=== PATIENT | female | born 1990 | race Caucasian/White ===

== ENCOUNTER 2016-12-29 04:53 | Inpatient (IN) | payer SELFPAY ==
[~2016-12-29] VITALS: Ht 160 cm; Wt 87.4 kg
[~2016-12-29 04:53] MED LIST: PREN1TAB49 PO
[2016-12-29 06:02] VITALS: Ht 160 cm; Wt 87.4 kg
[2016-12-29 06:03] VITALS: BP 136/60; PULSE 110; RESP 18
[2016-12-29 06:05] LABS: ADD UMIC YES; UR ASCORBIC ACID NEGATIVE (NEGATIVE); UR BILIRUBIN (Dip) NEGATIVE (NEGATIVE); UR BLOOD (Dip) NEGATIVE (NEGATIVE); UR CLARITY SLIGHTLY CLOUDY (CLEAR); UR COLOR YELLOW (YELLOW); UR GLUCOSE (Dip) NEGATIVE (NEGATIVE); UR KETONES (Dip) NEGATIVE (NEGATIVE); UR LEUKOCYTE ESTERASE (Dip) NEGATIVE Leu/ul (NEGATIVE); UR MUCUS FEW /HPF (NONE SEEN); UR NITRITE (Dip) NEGATIVE (NEGATIVE); UR RBC 0 /HPF (0-5); UR SPECIFIC GRAVITY (Dip) 1.017 (1.003-1.030); UR SQUAMOUS EPITHELIAL CELL FEW /HPF (FEW); UR TOTAL PROTEIN (Dip) 1+ mg/dl (NEGATIVE); UR UROBILINOGEN (Dip) 2+ mg/dL (NEGATIVE)
[2016-12-29 06:10] LABS: ABNORMAL IP MESSAGE 1; BASOPHILS % 0.2 % (0.0-2.0); EOSINOPHILS # 0.1 10^3/ul (0.0-0.5); EOSINOPHILS % 0.6 % (0.0-7.0); HEMATOCRIT 28.9 % (37.0-47.0); HEMOGLOBIN 9.6 g/dl (12.0-16.0); LYMPHOCYTES # 2.9 10^3/ul (0.8-2.9); LYMPHOCYTES % 17.3 % (15.0-51.0); MEAN CORPUSCULAR HEMOGLOBIN 26.4 pg (29.0-33.0); MEAN CORPUSCULAR HGB CONC 33.2 g/dl (32.0-37.0); MEAN CORPUSCULAR VOLUME 79.4 fl (82.0-101.0); MEAN PLATELET VOLUME 10.4 fl (7.4-10.4); MONOCYTE # 1.7 10^3/ul (0.3-0.9); MONOCYTES % 9.8 % (0.0-11.0); NEUTROPHILS % 70.3 % (39.0-77.0); PLATELET COUNT 265 10^3/UL (140-415); RED BLOOD COUNT 3.64 10^6/ul (4.20-5.40); RED CELL DISTRIBUTION WIDTH 14.3 % (11.5-14.5); WHITE BLOOD COUNT 16.9 10^3/ul (4.8-10.8)
[2016-12-29 06:20] LABS: INR 0.97; PROTIME 12.9 Sec (12.2-14.2)
[2016-12-29 06:21] LABS: PARTIAL THROMBOPLASTIN TIME 30.4 Sec (25.0-35.0)
[2016-12-29 06:24] LABS: POSITIVE DIFF @See below
[2016-12-29] MEDS: LACTATED RINGER'S 1,000 ML IV SCH ×4 (06:40→18:19)
--- NOTE | 2016-12-29 06:46 | HP ---
Date/Time of Note Date/Time of Note DATE: 12/29/16 TIME: 06:41 OB - History Hx of Present Free Text/Dictation 26yo at 35+3 by today's U/S presenting without any care for contractions q30-40 min starting at 2am. Pt states she did not know she was until about 4-5 weeks ago. At that time she was in [place] and had an ultrasound, however states she was not given any information about the . Pt states fetus is moving however the movement has been slower since contractions started. Denies LOF or VB. OB Hx: G1 SAB at 6wks G2 C/S at 27wks GA with gastroschisis, per pt C/S 2/2 poor movement PMHx denies Chief Complaint: contractions : 3 Para: 1 Spontaneous : 1 Care: None Medical Complications: None Past Family/Social History * Past Medical, Surgical, Family and Obstetric Histories reviewed with patient. records not available. Pt reports Rh neg status OB Admission Exam Vital Signs Vital Signs Vital Signs Date Time Temp Pulse Resp B/P Pulse Ox O2 Delivery O2 Flow Rate FiO2 12/29/16 06:03 98.2 110 18 136/60 Room Air FHR 170s, min alma, no accels, no decels Physical Exam HEENT: WNL Heart: Other (tachycardic, normal rhythm) Lungs: Clear Abdomen: WNL (gravid, nontender) Extremities: Normal Cervical Dilatation: Fingertip Effacement: Other (80%) Station: -2 Membranes: Intact Decelerations: No Decelerations Varibility: Minimum Contractions on Admission: >10 Minutes Apart Date/Time Contractions Began: 0200 Last 72 hours Lab Results CBC & BMP 12/29/16 05:33 OB Assessment/Plan Other Assessment: IUP at 35+3wks GA gastroschisis with herniation of multiple organs, no liver herniation tachycardia BPP 2/8 (2 for ANDI only) Plan: Section Other plan: Given nonreassuring status, delivery indicated for indications. Pt d/w Perinatologist, Dr. Barnes (attempted to call on-call MFM Dr. Pemberton three times without success) and advised to consult with [employer] Operations [employer] Analyst regarding prognosis with delivery at [facility] and transfer. Per Dr. Vanderhall, may proceed for obstetric indications and baby will be stabilized here at [facility] followed by likely transfer. Thus will proceed to delivery via [facility]. The risks of C/S discussed include but are not limited to pain, infection, damage to nearby organs, structures or injury to baby, bleeding possibly requiring transfusion of blood products and abnormal placentation in future pregnancies. Pt made aware that should injury to organs or structures be noted during the procedure, they will be repaired. However, there is a possibility that injuries may be sustained at the time of the C/S and go unrecognized. Thus additional surgeries may be necessary to repair damage during the C/S. The pt had an opportunity to have her questions answered. Written consent for Repeat C/S and transfusion of blood products were signed. RN, NICU and Anesthesia teams made aware of plan. LAURA ZAVALETA MD Dec 29, 2016 06:46
[2016-12-29] MEDS ORDERED: CEFAZOLIN 2 GM/50 ML (PMX) 50 ML IVPB ONE (07:43)
[2016-12-29] MEDS ORDERED: OXYTOCIN 30 UNITS/LR 500 ML IV ONE (07:45)
[2016-12-29] MEDS ORDERED: morphine SULFATE/PF (10 MG/10 ML) INJ ONE (07:45)
[2016-12-29] MEDS ORDERED: KETOROLAC 30 MG INJ ONE (07:45)
[2016-12-29] MEDS ORDERED: METOCLOPRAMIDE 10 MG INJ ONE (07:45)
--- NOTE | 2016-12-29 07:46 | RADRPT ---
PROCEDURE: US OB. CLINICAL INDICATION: Regional liver, contraction. Unknown LMP TECHNIQUE: Multiple sonographic images of the pelvis were obtained. The images were reviewed on a PACS workstation. COMPARISON: No prior studies are available for comparison. FINDINGS: The cervix is closed with a length of . There is a single viable intrauterine gestation. Cardiac activity is present with 173 beats per min fifi. There is a cephalic presentation. Measurements were made in order to determine age. The results are as follows: BPD =8.48 cm HC =31.2 cm AC =32.1 cm FL =7.1 cm. Estimated gestational age of approximately 35 weeks, 3 days. The estimated date of delivery is 01/30/2017. The EFW = 2771 g plus or minus 415.7 g, or 6 pounds, 2 ounces . Extracorporeal, thickened echogenic bowel and bladder are demonstrated. The kidneys and stomach are not visualized. The placenta is anterior, grade 1. There is no evidence for an abruption or placenta previa. There is a normal amount of amniotic fluid with an ANDI = 14.5 cm. Biophysical profile is 2/8. movement, tone and breathing are absent. IMPRESSION: Single viable intrauterine gestation of approximately 35 weeks, 3 days. The estimated date of deliv joanne is 01/30/2017 . Cephalic presentation. Anterior placenta. Normal ANDI. Biophysical profile 2/8. Findings suggesting gastroschisis. Limited anatomic survey. Follow-up recommended. Physician Gordon Date Time Electronically viewed and signed by Physician Gordon on 12/29/2016 07:46 CS/
--- NOTE | 2016-12-29 07:47 | RADRPT ---
PROCEDURE: OB ultrasound for biophysical profile CLINICAL INDICATION: labor. Biophysical profile. . TECHNIQUE: Multiple sonographic images of the pelvis were obtained. Transabdominal view of the gr avid uterus are available for review. The images were reviewed on a PACS workstation. COMPARISON: None FINDINGS: breathing movement = 0/2 tone = 0/2 motion = 0/2 ANDI = 2/2 ANDI = 14.5 cm Single live intrauterine with cardiac activity. IMPRESSION: 1. Single viable intrauterine gestation. 2. Biophysical profile = 2/8 3. ANDI = 14.5 cm. RPTAT: HCNS Physician Gordon Date Time Electronically viewed and signed by Physician Gordon on 12/29/2016 07:47 CS/
[2016-12-29] MEDS ORDERED: LACTATED RINGER'S 1,000 ML IV SCH (08:07)
[2016-12-29] MEDS ORDERED: PHENYLephrine (100 MCG/ML) 5ML SYG ONE ×2 (08:29→08:56)
[2016-12-29] MEDS ORDERED: METHYLERGONOVINE 0.2 MG INJ IM PRN ×2 (08:30→10:30)
[2016-12-29] MEDS ORDERED: MISOPROSTOL 200 MCG TAB PR PRN ×2 (08:30→10:30)
[2016-12-29] MEDS ORDERED: CEFAZOLIN 2 GM/50 ML (PMX) 50 ML IV SCH (08:30)
[2016-12-29] MEDS ORDERED: CARBOPROST 250 MCG INJ IM PRN ×2 (08:30→10:30)
[2016-12-29] MEDS ORDERED: OXYTOCIN 30 UNITS/LR 500 ML IV SCH (08:30)
[2016-12-29] MEDS ORDERED: OXYTOCIN 30 UNITS/LR 500 ML IV PRN ×2 (08:30→10:30)
[2016-12-29] MEDS ORDERED: FENTAnyl 50 MCG/ML VIAL ONE (08:56)
[2016-12-29 09:30] LABS: BARBITURATES Negative (NEGATIVE); BENZODIAZEPINES Negative (NEGATIVE); CANNABINOIDS Negative (NEGATIVE); COCAINE Negative (NEGATIVE); OPIATES Negative (NEGATIVE)
--- NOTE | 2016-12-29 09:37 | OPR ---
Operative Report Planned Procedure Procedure date Dec 29, 2016 Procedure(s) Repeat Low Transverse Section via Pfannenstiel Incision Performed by: LAURA ZAVAELTA MD Assisting provider: LEONARD JONES MD Anesthesiologist: EL GUNN MD Pre-procedure diagnosis 1)IUP at 35+3wks GA 2)Nonreassuring Status 3)Hx of C/S x1 4) Gastroschisis Anesthesia Type: spinal Procedure Description Under satisfactory anesthesia, the patient was prepped and draped and placed in a supine position with a tilt. Pfannenstiel incision was made with a scalpel, carried through the subcutaneous tissue sharply. Bleeders brought under control with electrocautery. Fascia incised and extended bilaterally using Hunter scissors. The superior and inferior aspects of the fascia were grasped with Marcos clamps and the fascia was sharply dissected off of the underlying rectus muscles. Rectus muscles bluntly divided midline. Peritoneum exposed, entered bluntly. Exploration of abdomen revealed gravid uterus. No adhesions were noted. A bladder flap was created sharply. Transverse incision was made in the lower segment of the uterus with entry through anterior placenta. Meconium stained amniotic fluid noted. The head was elevated to the level of the hysterotomy and delivered atraumatically followed by the remainder of the body. intestines immediately covered with moist lap on the sterile field. Nasal oropharyngeal suction was performed. The cord was doubly clamped and cut after cord milking x30 seconds. The baby was handed to the team for immediate attention. The placenta was delivered manually intact. Uterine cavity was cleaned with wet sponge x3. Uterus closed in 2 layers using 0-Vicryl. The first layer was running and locking and the second was in a horizontal imbricating manner. Hemostasis was achieved. Fibrillar was placed over the incision. Sponge, needle and instrument count reported to be correct. The rectus muscles and fascia were examined and noted to be intact. Small bleeders rendered hemostatic with electrocautery. Fascia closed with 0-Vicryl. The subcutaneous tissue was irrigated and small bleeders rendered hemostatic with electrocautery. The tissue was reapproximated using 2-0 Plain gut suture. The skin was reapproximated using 3-0 Monocryl. Estimated blood loss 600mL. Urine bag contained 300mL of clear urine. IVF administered 1.4L. Post-Procedure Post-procedure diagnosis Same, delivered Findings: Live female infant with herniation of bowel, Apgars 8 and 9 at 1 and 5 min respectively, weight 2550g, position vertex. Normal appearing uterus. Intact placenta with 3VC. No intrabdominal adhesions. Specimen removed: Yes (Placenta, sent to Pathology) Complications: None Pt Condition post procedure: stable Disposition: PACU Physician Certification I, the undersigned physician, hereby certify that I have discussed the procedure described in this consent form with this patient (or the patient's legal traveling representative), including: * The risk and benefits of the procedure; * Any adverse reactions that may reasonably be expected to occur; * Any alternative efficacious methods of treatment which may be medically viable ; * The potential problems that may occur during recuperation; * Potential for blood transfusion and associated risks/benefits; and * Any research or economic interest I may have regarding this treatment. I further certify that the patient/legally responsible person was encouraged to ask question and that all questions were answered. LAURA ZAVALETA MD Dec 29, 2016 09:37
[2016-12-29] MEDS ORDERED: DIPHENHYDRAMINE 50 MG INJ IV PRN ×2 (10:00)
[2016-12-29] MEDS ORDERED: HYDROmorphONE (0.2 MG/ML) 10ML SYG IV PRN ×3 (10:00)
[2016-12-29] MEDS ORDERED: NALOXONE (0.4 MG/ML) INJ IV PRN (10:00)
[2016-12-29] MEDS ORDERED: METOCLOPRAMIDE 10 MG INJ IV PRN (10:00)
[2016-12-29] MEDS ORDERED: HYDROmorphONE 1 MG/ML SYG IV PRN ×3 (10:00)
[2016-12-29] MEDS ORDERED: MEPERIDINE 25 MG INJ IV PRN (10:00)
[2016-12-29 10:07] LABS: ALBUMIN 3.1 g/dl (3.3-4.9); ALBUMIN/GLOBULIN RATIO 0.81; BILIRUBIN,INDIRECT 0.1 mg/dl (0-1.1); BILIRUBIN,TOTAL 0.1 mg/dl (0.2-1.3); CALCIUM 8.7 mg/dl (8.4-10.2); CREATININE 0.5 mg/dl (0.44-1.00); POTASSIUM 3.8 mmol/L (3.5-5.1); TOTAL PROTEIN 6.9 g/dl (6.1-8.1)
[2016-12-29] MEDS ORDERED: LANOLIN 7 GM TUBE TOP PRN (10:30)
[2016-12-29] MEDS ORDERED: HYDROCODONE/APAP (5/325) TAB PO PRN ×2 (10:30)
[2016-12-29 11:22] LABS: CBV Base Excess -2.5 mmol/L; CBV COHb 1.5 %; CBV Oxygen Sat 67.8 mmHG; CBV Total Hemglobin 18.2 g/dl; Cord Blood Venous pO2 29.3 mmHG (15.0-45.0); Fraction OxyHgb Cord Venous 65.9 %; MODE ROOM AIR; MetHgb Cord Venous 1.3 %; Sample Type CBV
[2016-12-29 12:38] VITALS: BP 128/61; PULSE 109; RESP 20
[2016-12-29] MEDS: IBUPROFEN 800 MG TAB PO SCH ×2 (14:00→22:00)
[2016-12-29 15:30] VITALS: BP 109/72; PULSE 109; RESP 20
[2016-12-29 20:00] VITALS: BP 112/71; PULSE 117; RESP 18
[2016-12-29] MEDS: SENNA/DOCUSATE NA (8.6MG/50MG) TAB PO SCH (21:00)
[2016-12-30] VITALS (7 sets, daily range): BP systolic 101–109; BP diastolic 55–69; PULSE 103–124; RESP 18–28
[2016-12-30] MEDS: KETOROLAC 30 MG INJ IV PRN ×2 (01:19→07:55)
--- NOTE | 2016-12-30 01:21 | PN ---
Date/Time of Note Date/Time of Note DATE: 12/30/16 TIME: 01:19 Assessment/Plan VTE Prophylaxis VTE Prophylaxis Intervention: ambulation Lines/Catheters IV Catheter Type (from Nrsg): Peripheral IV Subjective 24 Hr Interval Summary Free Text/Dictation anesthesia note: A 26 female s/p spinal duramorph is doimg pk/ pain is controlled, no n/v, itching, headache, back pain. care per surgery Exam/Review of Systems Vital Signs Vitals Vital Signs Date Time Temp Pulse Resp B/P Pulse Ox O2 Delivery O2 Flow Rate FiO2 12/29/16 20:00 98.9 117 18 112/71 Room Air Intake and Output 12/29/16 12/29/16 12/30/16 15:00 23:00 07:00 Intake Total 125 ml Output Total 950 ml Balance -825 ml Results Result Diagram: 12/29/16 0533 12/29/16 0535 Results 24 hrs Laboratory Tests Test 12/29/16 05:33 12/29/16 05:35 12/29/16 08:35 12/29/16 09:25 White Blood Count 16.9 H Red Blood Count 3.64 L Hemoglobin 9.6 L Hematocrit 28.9 L Mean Corpuscular Volume 79.4 L Mean Corpuscular Hemoglobin 26.4 L Mean Corpuscular Hemoglobin Concent 33.2 Red Cell Distribution Width 14.3 Platelet Count 265 Mean Platelet Volume 10.4 Neutrophils % 70.3 Lymphocytes % 17.3 Monocytes % 9.8 Eosinophils % 0.6 Basophils % 0.2 Nucleated Red Blood Cells % 0.0 Neutrophils # (Manual) 11.9 H Lymphocytes # 2.9 Monocytes # 1.7 H Eosinophils # 0.1 Basophils # 0.0 Nucleated Red Blood Cells # 0.0 Prothrombin Time 12.9 Prothrombin Time Ratio 1.0 INR International Normalized Ratio 0.97 Activated Partial Thromboplast Time 30.4 Rapid Plasma Reagin NONREACTIVE Hepatitis B Surface Antigen NEGATIVE NEGATIVE HIV (1&2) Antibody NEGATIVE Urine Color YELLOW Urine Clarity SLIGHTLY CLOUDY A Urine pH 6.0 Urine Specific [place] 1.017 Urine Ketones NEGATIVE Urine Nitrite NEGATIVE Urine Bilirubin NEGATIVE Urine Urobilinogen 2+ H Urine Leukocyte Esterase NEGATIVE Urine Microscopic RBC 0 Urine Microscopic WBC 2 Urine Squamous Epithelial Cells FEW Urine Mucus FEW A Urine Hemoglobin NEGATIVE Urine Glucose NEGATIVE Urine Total Protein 1+ H Sodium Level 136 Potassium Level 3.8 Chloride Level 107 Carbon Dioxide Level 22 Anion Gap 11 Blood Urea Nitrogen 6 L Creatinine 0.50 Glucose Level 109 Calcium Level 8.7 Total Bilirubin 0.1 L Direct Bilirubin 0.00 Indirect Bilirubin 0.1 Aspartate Amino Transf (AST/SGOT) 25 Alanine Aminotransferase (ALT/SGPT) 35 Alkaline Phosphatase 192 H Total Protein 6.9 Albumin 3.1 L Globulin 3.80 H Albumin/Globulin Ratio 0.81 Urine Opiates Screen Negative Urine Barbiturates Negative Urine Amphetamines Screen Negative Urine Benzodiazepines Screen Negative Urine Cocaine Screen Negative Urine Cannabinoids Negative Blood Gas Specimen Source CBV Arterial Blood Date Drawn 12/29/2016 9:39:40 AM Arterial Blood Gas Puncture Site CORD Palmer Test N/A Cord Blood Carboxyhemoglobin 1.5 Cord Venous Blood pH 7.341 Cord Venous Blood PCO2 44.4 Cord Venous Blood PO2 29.3 Cord Venous Blood HCO3 23.5 Cord Venous Blood Base Excess -2.5 POC Cord Venous Blood Oxygen Sat 67.8 Cord Venous Blood Hemoglobin 18.2 Cord Venous Blood Oxyhemoglobin 65.9 Cord Venous Blood Methemoglobin 1.3 Blood Gas Temperature 37.0 Blood Gas Modality ROOM AIR FiO2 21.0 Blood Gas Notified Whom NB Blood Gas Notified Time 12/29/2016 11:22:13 AM Medications Medications Current Medications Naloxone HCl (Narcan) 0.1 mg Q2M PRN IV FOR RESP RATE 8 OR LESS; Start 12/29/16 at 10:00; Stop 12/30/16 at 09:59 Ketorolac Tromethamine (Toradol) 30 mg Q6H PRN IV PAIN; Start 12/29/16 at 10:00 ; Stop 12/30/16 at 09:59 Hydromorphone HCl (Dilaudid) 1 mg Q3H PRN IV BREAKTHROUGH PAIN; Start 12/29/16 at 10:00; Stop 12/30/16 at 09:59 Hydromorphone HCl (Dilaudid) 0.2 mg Q3H PRN IV PAIN LEVEL 1-5; Start 12/29/16 at 10:00; Stop 12/30/16 at 09:59 Hydromorphone HCl (Dilaudid) 0.4 mg Q3H PRN IV PAIN LEVEL 6-10; Start 12/29/16 at 10:00; Stop 12/30/16 at 09:59 Diphenhydramine HCl 25 mg 25 mg Q6H PRN IV ITCHING; Start 12/29/16 at 10:00; Stop 12/30/16 at 09:59 Lactated Ringer's (Lr) 1,000 ml @ 125 mls/hr Q8H IV Last administered on t 18:19; Admin Dose 125 MLS/HR; Start 12/29/16 at 10:10 Acetaminophen/ Hydrocodone Bitart ([place] (5/325)) 1 tab Q4H PRN PO PAIN LEVEL 4 -6; Start 12/29/16 at 10:30 Acetaminophen/ Hydrocodone Bitart ([place] (5/325)) 2 tab Q4H PRN PO PAIN LEVEL 7 -10; Start 12/29/16 at 10:30 Ibuprofen (Motrin) 800 mg Q8 PO ; Start 12/29/16 at 14:00 Simethicone (Mylicon) 160 mg Q8H PRN PO DISTENSION/GAS/BLOATING; Start 12/29/16 at 10:30 Senna/Docusate Sodium (Senokot-S) 1 tab BID PO ; Start 12/29/16 at 21:00 Diphtheria/ Tetanus/Acell Pertussis 0.5 ml 0.5 ml ONCE ONCE IM* ; Start 01/01/17 at 09:00; Stop 01/01/17 at 09:01 Oxytocin/Lactated Ringer's 500 ml @ 0 mls/hr ONCE PRN IV For Hemorrhage Management; Start 12/29/16 at 10:30 Methylergonovine Maleate (Methergine) 0.2 mg ONCE PRN IM VAGINAL BLEEDING; Start 12/29/16 at 10:30 Carboprost Tromethamine (Hemabate) 250 mcg ONCE PRN IM VAGINAL BLEEDING; Start 12/29/16 at 10:30 Misoprostol (Cytotec) 1,000 mcg ONCE PRN [place] VAGINAL BLEEDING; Start 12/29/16 at 10:30 EL GUNN MD Dec 30, 2016 01:21
[2016-12-30] MEDS: LACTATED RINGER'S 1,000 ML IV SCH ×3 (02:31→19:30)
[2016-12-30] MEDS: IBUPROFEN 800 MG TAB PO SCH ×3 (06:00→21:56)
[2016-12-30 07:52] LABS: BASOPHILS % 0.2 % (0.0-2.0); EOSINOPHILS % 0.2 % (0.0-7.0); HEMATOCRIT 28.4 % (37.0-47.0); HEMOGLOBIN 8.9 g/dl (12.0-16.0); LYMPHOCYTES # 2.5 10^3/ul (0.8-2.9); LYMPHOCYTES % 14.3 % (15.0-51.0); MEAN CORPUSCULAR HEMOGLOBIN 25.7 pg (29.0-33.0); MEAN CORPUSCULAR HGB CONC 31.3 g/dl (32.0-37.0); MEAN CORPUSCULAR VOLUME 82.1 fl (82.0-101.0); MEAN PLATELET VOLUME 10.6 fl (7.4-10.4); MONOCYTE # 1.4 10^3/ul (0.3-0.9); MONOCYTES % 8.3 % (0.0-11.0); PLATELET COUNT 210 10^3/UL (140-415); RED BLOOD COUNT 3.46 10^6/ul (4.20-5.40); RED CELL DISTRIBUTION WIDTH 14.5 % (11.5-14.5); WHITE BLOOD COUNT 17.2 10^3/ul (4.8-10.8)
[2016-12-30] MEDS: SENNA/DOCUSATE NA (8.6MG/50MG) TAB PO SCH ×2 (11:56→21:56)
[2016-12-30] MEDS ORDERED: LACTATED RINGER'S 500 ML IV ONE ×2 (16:00→19:30)
[2016-12-30 18:06] LABS: ABNORMAL IP MESSAGE 1; BASOPHILS % 0.2 % (0.0-2.0); EOSINOPHILS % 0.1 % (0.0-7.0); HEMOGLOBIN 8.8 g/dl (12.0-16.0); LYMPHOCYTES # 1.7 10^3/ul (0.8-2.9); LYMPHOCYTES % 9.7 % (15.0-51.0); MEAN CORPUSCULAR HEMOGLOBIN 27.5 pg (29.0-33.0); MEAN CORPUSCULAR HGB CONC 33.8 g/dl (32.0-37.0); MEAN CORPUSCULAR VOLUME 81.3 fl (82.0-101.0); MEAN PLATELET VOLUME 10.5 fl (7.4-10.4); MONOCYTE # 1.5 10^3/ul (0.3-0.9); MONOCYTES % 8.6 % (0.0-11.0); NEUTROPHILS % 79.8 % (39.0-77.0); PLATELET COUNT 243 10^3/UL (140-415); RED CELL DISTRIBUTION WIDTH 14.4 % (11.5-14.5); WHITE BLOOD COUNT 17.6 10^3/ul (4.8-10.8)
[2016-12-30 18:08] LABS: POSITIVE DIFF @See below
--- NOTE | 2016-12-30 18:27 | QN ---
Documentation Comment pod1 pt doing well no complaints vss tachy 115-120 temp wnl exam wnl a/p pod 1 cbc stable tachy iv bolus cbc tsh DANIELLE STEELE MD Dec 30, 2016 18:27
--- NOTE | 2016-12-30 19:59 | QN ---
Documentation Comment Postop day #1 status post repeat Patient reports of having shortness of breath in the last two weeks but not at this time Patient with tachycardia since this a.m. 115-120 O2 sat 98% in room air Afebrile and stable Hb 8.8 WBC 17.6 Patient received 500cc IVF bolus earlier today I came on my shift at 7 PM I ordered additional IV fluid bolus EKG and chest x-ray Spiral CT to rule out PE labs and ABX ordered Requested hospitalist consult DIAMOND BRUNER MD Dec 30, 2016 19:59
--- NOTE | 2016-12-30 21:02 | RADRPT ---
PROCEDURE: XR Chest. CLINICAL INDICATION: Shortness of breath. TECHNIQUE: PA and lateral chest x-ray. COMPARISON: None. FINDINGS: The cardiomediastinal silhouette is unremarkable. There is no congestive heart failure. There is mild bibasilar atelectasis. There is no pleural effusion. There is no pneumothorax The osseous s tructures are unremarkable. IMPRESSION: Mild bibasilar atelectasis. RPTAT: [facility]VK .Carlos Plummer MD, MD Date Time Electronically viewed and signed by .Carlos Plummer MD, on 12/30/2016 21:02 .K/
[2016-12-30 21:11] LABS: ABNORMAL IP MESSAGE 1; BASOPHILS % 0.2 % (0.0-2.0); EOSINOPHILS # 0.1 10^3/ul (0.0-0.5); EOSINOPHILS % 0.3 % (0.0-7.0); HEMATOCRIT 26.8 % (37.0-47.0); LYMPHOCYTES # 2.1 10^3/ul (0.8-2.9); LYMPHOCYTES % 11.6 % (15.0-51.0); MEAN CORPUSCULAR HEMOGLOBIN 27.1 pg (29.0-33.0); MEAN CORPUSCULAR HGB CONC 33.6 g/dl (32.0-37.0); MEAN CORPUSCULAR VOLUME 80.7 fl (82.0-101.0); MEAN PLATELET VOLUME 9.6 fl (7.4-10.4); MONOCYTE # 1.5 10^3/ul (0.3-0.9); MONOCYTES % 8.6 % (0.0-11.0); NEUTROPHILS % 77.6 % (39.0-77.0); PLATELET COUNT 241 10^3/UL (140-415); RED BLOOD COUNT 3.32 10^6/ul (4.20-5.40); RED CELL DISTRIBUTION WIDTH 14.3 % (11.5-14.5); WHITE BLOOD COUNT 17.8 10^3/ul (4.8-10.8)
[2016-12-30 21:13] LABS: POSITIVE DIFF @See below
--- NOTE | 2016-12-30 22:09 | CONS ---
Date/Time of Note Date/Time of Note DATE: 12/30/16 TIME: 21:48 Assessment/Plan Assessment/Plan Chief Complaint/Hosp Course This is a 26-year-old female admitted to the unit floor for: #1 sinus tachycardia: Infection versus cardiopulmonary versus dehydration vs other etiology: Patient is status post postop day 1. At the current time will provide IV fluid resuscitation with normal saline 1 L bolus. CBC did show an elevated white blood cell count which could be reactive secondary to her state and , of not she does have a UTI as well. Patient is currently afebrile. Chest x-ray showed atelectasis and no other signs of any underlying respiratory infection. Continue Ancef antibiotics as per OB/ DYNAMOTOR REPAIRER. Will check a CTA of the chest to rule out PE. EKG: sinus tach at approx 118 bpm, no acute ST or T wave abnormalities noted. And monitor for fevers as well as any possible further development of any worsening infection. Consider echocardiogram/cardiology consult if this tachycardia persists and testing is unequivocal #2 status post : Is postop day 1 status post . Continue routine care per VALIDATION TECHNICIAN. #3 UTI: cipro PO bid Thank you for this consultation we will continue to follow this patient with you. Problems: Consultation Date/Type/Reason Admit Date/Time Dec 29, 2016 at 07:36 Date of Consultation: Dec 30, 2016 Type of Consultation: Medicine Reason for Consultation tachycardia Hx of Present Illness This is a 26-year-old now female status post with asymptomatic sinus tachycardia. Patient was noted to have tachycardia ranging from the 110s to approximately 130s. She was given fluid resuscitation with lactated Ringer' s. Currently patient is running in sinus tachycardia at approximately 110 bpm. Of note patient was approximately 35 weeks gestation. She had poor care as patient did not know that she was until only approximately about 6 weeks ago. During her patient did report that she felt some chest pain which has since resolved. At the current time patient does report that when she takes a deep breath she notices pain bilaterally lower chest below her breasts bilaterally. Denies any cough. Denies any urinary symptoms. No our child was born with gastroschisis and her previous child also had the same issue. Her child was sent over to [facility] for further treatment. Surgeries: NKDA Medications: None Const: Negative for fever, chills, weight gain or weight loss, fatigue, or diaphoresis Eyes : No pain discharge or redness or change in visual acuity ENT: No pain, sore throat, congestion, congestion, dysphagia or discharge Respiratory: As per HPI Cardiovascular: HPI GI : no change in appetite, abdominal pain, nausea, vomiting, diarrhea, constipation, or change in the color his stool Genitourinary: No dysuria, hematuria, flank pain , discharge or CVA tenderness Musculoskeletal: No joint pain, back pain, neck pain, restricted range of motion in neck or joints Skin: No rash, bruising or hives Neuro: No headache, dizziness, syncope, seizure, focal weakness Endocrine: No polyuria, polydipsia, temperature intolerance Psych: No hallucination, depression, anxiety or suicidal ideation Past Medical History Past Surgical History x 2 Family History Significant Family History: no pertinent family hx Social History Alcohol Use: none Smoking Status: Never smoker Drug Use: none Exam/Review of Systems Vital Signs Vitals Vital Signs Date Time Temp Pulse Resp B/P Pulse Ox O2 Delivery O2 Flow Rate FiO2 12/30/16 19:45 99.0 116 18 104/58 98 Room Air Intake and Output 12/29/16 12/29/16 12/30/16 15:00 23:00 07:00 Intake Total 125 ml Output Total 950 ml 400 ml 1400 ml Balance -825 ml -400 ml -1400 ml Exam General: Patient is well-developed well-nourished The patient is alert oriented -3 lying comfortably in bed. HEENT: Atraumatic, normocephalic. The pupils are equal, round and reactive. Extraocular motor are intact Neck: Supple with full range of motion. No rigidity or meningismus Chest: Nontender to palpation Lungs: Pleuritic pain of the bilateral lower chest on deep inspiration, lungs clear to auscultation bilaterally. Heart: Sinus tachycardia, no overt murmurs appreciated Abdomen: Soft , nontender, nondistended , bowel sounds are present. No guarding no rebound tenderness , No masses or organomegaly. No costovertebral temporal angle mass Extremities: Normal to inspection, no edema no cyanosis Neurologic: Normal mental status, speech normal, cranial nerves II through XII are intact, motor and sensory are intact, no focal weakness Psych: no complaints Additional Comments He: Sinus tachycardia at approximately 118 bpm, no overt ST or T-wave abnormalities noted Results Result Diagram: 12/30/16205812/29/16 0535 Results 24 hrs Laboratory Tests Test 12/30/16 07:04 12/30/16 17:24 12/30/16 20:59 White Blood Count 17.2 H 17.6 H 17.8 H Red Blood Count 3.46 L 3.20 L 3.32 L Hemoglobin 8.9 L 8.8 L 9.0 L Hematocrit 28.4 L 26.0 L 26.8 L Mean Corpuscular Volume 82.1 81.3 L 80.7 L Mean Corpuscular Hemoglobin 25.7 L 27.5 L 27.1 L Mean Corpuscular Hemoglobin Concent 31.3 L 33.8 33.6 Red Cell Distribution Width 14.5 14.4 14.3 Platelet Count 210 # 243 241 Mean Platelet Volume 10.6 H 10.5 H 9.6 Neutrophils % 76.0 79.8 H 77.6 H Lymphocytes % 14.3 L 9.7 L 11.6 L Monocytes % 8.3 8.6 8.6 Eosinophils % 0.2 0.1 0.3 Basophils % 0.2 0.2 0.2 Nucleated Red Blood Cells % 0.0 0.0 0.0 Neutrophils # (Manual) 13.1 H 14.0 H 13.8 H Lymphocytes # 2.5 1.7 2.1 Monocytes # 1.4 H 1.5 H 1.5 H Eosinophils # 0.0 0.0 0.1 Basophils # 0.0 0.0 0.0 Nucleated Red Blood Cells # 0.0 0.0 0.0 Medications Medications Current Medications Lactated Ringer's (Lr) 1,000 ml @ 125 mls/hr Q8H IV Last administered on t 19:30; Admin Dose 125 MLS/HR; Start 12/29/16 at 10:10 Acetaminophen/ Hydrocodone Bitart ([place] (5/325)) 1 tab Q4H PRN PO PAIN LEVEL 4 -6; Start 12/29/16 at 10:30 Acetaminophen/ Hydrocodone Bitart ([place] (5/325)) 2 tab Q4H PRN PO PAIN LEVEL 7 -10; Start 12/29/16 at 10:30 Ibuprofen (Motrin) 800 mg Q8 PO Last administered on 12/30/16 15:33; Admin Dose 800 MG; Start 12/29/16 at 14:00 Simethicone (Mylicon) 160 mg Q8H PRN PO DISTENSION/GAS/BLOATING Last administered on 12/30/16 15:42; Admin Dose 160 MG; Start 12/29/16 at 10:30 Senna/Docusate Sodium (Senokot-S) 1 tab BID PO Last administered on 12/30/16 11 :56; Admin Dose 1 TAB; Start 12/29/16 at 21:00 Diphtheria/ Tetanus/Acell Pertussis 0.5 ml 0.5 ml ONCE ONCE IM* ; Start 01/01/17 at 09:00; Stop 01/01/17 at 09:01 Oxytocin/Lactated Ringer's 500 ml @ 0 mls/hr ONCE PRN IV For Hemorrhage Management; Start 12/29/16 at 10:30 Methylergonovine Maleate (Methergine) 0.2 mg ONCE PRN IM VAGINAL BLEEDING; Start 12/29/16 at 10:30 Carboprost Tromethamine (Hemabate) 250 mcg ONCE PRN IM VAGINAL BLEEDING; Start 12/29/16 at 10:30 Misoprostol 1000 mcg 1,000 mcg ONCE PRN [place] VAGINAL BLEEDING; Start 12/29/16 at 10 :30 Cefazolin Sodium/ Dextrose (Ancef 2 Gm/50 ml (Pmx)) 50 ml @ 100 mls/hr Q8 IVPB ; Start 12/30/16 at 22:00; Stop 12/31/16 at 14:29 JENIFER CORTES Dec 30, 2016 21:59
[2016-12-30 22:57] LABS: ADD UMIC YES; UR ASCORBIC ACID NEGATIVE (NEGATIVE); UR BACTERIA FEW /HPF (NONE SEEN); UR BILIRUBIN (Dip) NEGATIVE (NEGATIVE); UR BLOOD (Dip) 3+ mg/dL (NEGATIVE); UR CLARITY CLEAR (CLEAR); UR COLOR YELLOW (YELLOW); UR GLUCOSE (Dip) NEGATIVE (NEGATIVE); UR KETONES (Dip) NEGATIVE (NEGATIVE); UR LEUKOCYTE ESTERASE (Dip) 1+ Leu/ul (NEGATIVE); UR NITRITE (Dip) NEGATIVE (NEGATIVE); UR RBC 8 /HPF (0-5); UR SPECIFIC GRAVITY (Dip) 1.002 (1.003-1.030); UR TOTAL PROTEIN (Dip) 1+ mg/dl (NEGATIVE); UR UROBILINOGEN (Dip) 1+ mg/dL (NEGATIVE)
[2016-12-30] MEDS: CEFAZOLIN 2 GM/50 ML (PMX) 50 ML IVPB SCH (22:59)
--- NOTE | 2016-12-30 23:52 | RADRPT ---
PROCEDURE: CT Chest without contrast. CLINICAL INDICATION: Shortness of breath. TECHNIQUE: CT scan of the chest was performed on a multi-detector high-resolution CT scanner. Co ntiguous axial images were obtained from the lung apices to the upper abdomen without intravenous co ntrast. Coronal and sagittal reformatted images were also obtained. Images were reviewed on the Dexcom workstation. One or more of the following dose reduction techniques were used: - Automated exposure control. - Adjustment of the mA and/or kV according to patient size. - Use of iterative reconstruction technique. Exam CTD/vol = 14.46 mGy. Total exam DLP = 433.23 mGy-cm. COMPARISON: None. FINDINGS: The visualized thyroid gland is unremarkable. There are no enlarged axillary lymph nodes. There ar e no enlarged mediastinal or hilar lymph nodes; however, study limited by lack of intravenous contra st. The heart and aorta are unremarkable. There is no pericardial thickening or effusion. There are mild bibasilar atelectasis and small pleural effusions. There is no significant pulmonary venous congestion. The central tracheobronchial tree is within normal limits. The osseous structures are unremarkable. Limited evaluation of the upper abdomen is unremarkable. IMPRESSION: Mild bibasilar atelectasis and small pleural effusions. .Saroj Pressley MD, Date Time Electronically viewed and signed by .Saroj Pressley MD, MD on 12/30/2016 23:52 .T/
[2016-12-31] MEDS ORDERED: SOD CHLORIDE 0.9% 1,000 ML IV ONE (00:30)
[2016-12-31] MEDS ORDERED: CEFTRIAXONE 1 GM/50 ML (PMX) 50 ML IVPB SCH (01:30)
[2016-12-31] MEDS: LACTATED RINGER'S 1,000 ML IV SCH ×2 (02:10→10:10)
[2016-12-31 04:00] VITALS: BP 100/64; PULSE 96; RESP 18
[2016-12-31] MEDS ORDERED: IOHEXOL 300MG/ML 150 ML BTL ONE (04:10)
[2016-12-31] MEDS ORDERED: SOD CHLORIDE 0.9% 100 ML ONE (04:10)
[2016-12-31] MEDS: CIPROFLOXACIN 250 MG TAB PO SCH ×2 (04:45→17:55)
--- NOTE | 2016-12-31 05:29 | RADRPT ---
PROCEDURE: CTA Chest CLINICAL INDICATION: Pleuritic chest pain and tachycardia TECHNIQUE: Thin section spiral CT images were obtained through the vasculature of the chest during administration of 100 cc of Omnipaque-300 contrast material. Multiplanar reconstructions and 3-D m aximum intensity projection reconstructed images were performed. The images were reviewed on a PACS workstation. The total exam CTDI equals 17.92 mGy, and the total exam DLP equals 667.55 mGy-cm. One or more of the following dose reduction techniques were used: automated exposure control, adjust ment of the mA and/or kV according to patient size, or use of iterative reconstruction technique. COMPARISON: 12/30/2016 FINDINGS: Moderate dependent atelectasis of the lungs is seen. No focal infiltrate or pleural effusion is see n. No pericardial effusion is seen. No hilar or mediastinal adenopathy is seen. There is no defini te evidence for pulmonary embolus or aortic dissection. Visualized portions of the upper abdomen a re unremarkable. No bony abnormality is seen. IMPRESSION: No evidence for pulmonary embolus or aortic dissection. No definite acute disease. RPTAT: [facility] Physician Opal Date Time Electronically viewed and signed by Physician Opal on 12/31/2016 05:29 LE/
[2016-12-31] MEDS: IBUPROFEN 800 MG TAB PO SCH ×3 (06:16→21:40)
[2016-12-31] MEDS: CEFAZOLIN 2 GM/50 ML (PMX) 50 ML IVPB SCH ×2 (06:16→13:14)
[2016-12-31 07:45] VITALS: BP 107/55; PULSE 87; RESP 18
[2016-12-31] MEDS: SENNA/DOCUSATE NA (8.6MG/50MG) TAB PO SCH ×2 (09:39→21:13)
[2016-12-31 10:21] LABS: BASOPHIL # 0.1 10^3/ul (0.0-0.1); BASOPHILS % 0.3 % (0.0-2.0); EOSINOPHILS # 0.3 10^3/ul (0.0-0.5); EOSINOPHILS % 1.7 % (0.0-7.0); HEMATOCRIT 25.4 % (37.0-47.0); HEMOGLOBIN 8.5 g/dl (12.0-16.0); LYMPHOCYTES # 2.9 10^3/ul (0.8-2.9); LYMPHOCYTES % 18.8 % (15.0-51.0); MEAN CORPUSCULAR HEMOGLOBIN 27.2 pg (29.0-33.0); MEAN CORPUSCULAR HGB CONC 33.5 g/dl (32.0-37.0); MEAN CORPUSCULAR VOLUME 81.2 fl (82.0-101.0); MEAN PLATELET VOLUME 10.2 fl (7.4-10.4); MONOCYTE # 1.1 10^3/ul (0.3-0.9); MONOCYTES % 6.9 % (0.0-11.0); NEUTROPHILS % 69.9 % (39.0-77.0); PLATELET COUNT 245 10^3/UL (140-415); RED BLOOD COUNT 3.13 10^6/ul (4.20-5.40); RED CELL DISTRIBUTION WIDTH 14.4 % (11.5-14.5); WHITE BLOOD COUNT 15.5 10^3/ul (4.8-10.8)
--- NOTE | 2016-12-31 11:55 | PN ---
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 The gymnasium teacher attended the delivery and after examination the preparation was made to transfer this baby to [facility] for care of her gastroschisis . Laboratory Tests Test 12/30/16 17:24 12/30/16 20:59 12/30/16 22:45 12/31/16 09:59 White Blood Count 17.610^3/ul 17.810^3/ul 15.510^3/ul Red Blood Count 3.2010^6/ul 3.3210^6/ul 3.1310^6/ul Hemoglobin 8.8g/dl 9.0g/dl 8.5g/dl Hematocrit 26.0% 26.8% 25.4% Mean Corpuscular Volume 81.3fl 80.7fl 81.2fl Mean Corpuscular Hemoglobin 27.5pg 27.1pg 27.2pg Mean Corpuscular Hemoglobin Concent 33.8g/dl 33.6g/dl 33.5g/dl Red Cell Distribution Width 14.4% 14.3% 14.4% Platelet Count 88078^3/UL 57504^3/UL 60298^3/UL Mean Platelet Volume 10.5fl 9.6fl 10.2fl Neutrophils % 79.8% 77.6% 69.9% Lymphocytes % 9.7% 11.6% 18.8% Monocytes % 8.6% 8.6% 6.9% Eosinophils % 0.1% 0.3% 1.7% Basophils % 0.2% 0.2% 0.3% Nucleated Red Blood Cells % 0.0/100WBC 0.0/100WBC 0.0/100WBC Neutrophils # (Manual) 14.010^3/ul 13.810^3/ul 10.810^3/ul Lymphocytes # 1.710^3/ul 2.110^3/ul 2.910^3/ul Monocytes # 1.510^3/ul 1.510^3/ul 1.110^3/ul Eosinophils # 0.010^3/ul 0.110^3/ul 0.310^3/ul Basophils # 0.010^3/ul 0.010^3/ul 0.110^3/ul Nucleated Red Blood Cells # 0.010^3/ul 0.010^3/ul 0.010^3/ul Urine Color YELLOW Urine Clarity CLEAR Urine pH 6.0 Urine Specific [place] 1.002 Urine Ketones NEGATIVEmg/dL Urine Nitrite NEGATIVEmg/dL Urine Bilirubin NEGATIVEmg/dL Urine Urobilinogen 1+mg/dL Urine Leukocyte Esterase 1+July/ul Urine Microscopic RBC 8/HPF Urine Microscopic WBC 4/HPF Urine Bacteria FEW/HPF Urine Hemoglobin 3+mg/dL Urine Glucose NEGATIVEmg/dL Urine Total Protein 1+mg/dl Current Medications Medications (Trade) Dose Ordered Sig/Antionette Route PRN Reason Start Time Stop Time Status Last Admin Dose Admin Lactated Ringer's 1,000 ml @ 125 mls/hr Q8H IV 12/29/16 05:27 12/29/16 08:08 DC 12/29/16 06:42 Cefazolin Sodium/ Dextrose 50 ml @ ud STK-MED ONCE IVPB 12/29/16 07:43 12/29/16 07:44 DC Oxytocin/Lactated Ringer's 500 ml @ ud STK-MED ONCE IV 12/29/16 07:45 12/29/16 07:46 DC Morphine Sulfate (Duramorph) 10 mg STK-MED ONCE .ROUTE 12/29/16 07:45 12/29/16 07:46 DC Metoclopramide HCl (Reglan) 10 mg STK-MED ONCE .ROUTE 12/29/16 07:45 12/29/16 07:46 DC Ketorolac Tromethamine 30 mg 30 mg STK-MED ONCE .ROUTE 12/29/16 07:45 12/29/16 07:46 DC Lactated Ringer's 1,000 ml @ 125 mls/hr Q8H IV 12/29/16 08:07 12/29/16 10:23 DC Cefazolin Sodium/ Dextrose 50 ml @ 100 mls/hr ONCE IV 12/29/16 08:30 12/29/16 10:23 DC Oxytocin/Lactated Ringer's 500 ml @ 125 mls/hr ONCE IV 12/29/16 08:30 12/29/16 10:23 DC Oxytocin/Lactated Ringer's 500 ml @ 0 mls/hr ONCE PRN IV For Hemorrhage Management 12/29/16 08:30 12/29/16 10:23 DC Methylergonovine Maleate (Methergine) 0.2 mg ONCE PRN IM VAGINAL BLEEDING 12/29/16 08:30 12/29/16 10:23 DC Carboprost Tromethamine (Hemabate) 250 mcg ONCE PRN IM VAGINAL BLEEDING 12/29/16 08:30 12/29/16 10:23 DC Misoprostol (Cytotec) 1,000 mcg ONCE PRN IN VAGINAL BLEEDING 12/29/16 08:30 12/29/16 10:23 DC Phenylephrine HCl (Oneal-Synephrine Inj Syg) 500 mcg STK-MED ONCE .ROUTE 12/29/16 08:29 12/29/16 08:30 DC Fentanyl (Sublimaze) 100 mcg STK-MED ONCE .ROUTE 12/29/16 08:56 12/29/16 08:57 DC Phenylephrine HCl (Oneal-Synephrine Inj Syg) 500 mcg STK-MED ONCE .ROUTE 12/29/16 08:56 12/29/16 08:57 DC Hydromorphone HCl (Dilaudid (Rec)) 0.2 mg PACU ORDER PRN IV MILD PAIN LEVEL 1-3 12/29/16 10:00 12/29/16 10:23 DC Hydromorphone HCl (Dilaudid (Rec)) 0.4 mg PACU ORDER PRN IV MODERATE PAIN LEVEL 4-6 12/29/16 10:00 12/29/16 10:23 DC Hydromorphone HCl (Dilaudid (Rec)) 0.6 mg PACU ORDER PRN IV SEVERE PAIN LEVEL 7-10 12/29/16 10:00 12/29/16 10:23 DC Metoclopramide HCl (Reglan) 10 mg PACU ORDER PRN IV NAUSEA AND/OR VOMITING 12/29/16 10:00 12/29/16 10:23 DC Meperidine HCl (Demerol) 25 mg PACU ORDER PRN IV POST-OP RIGORS 12/29/16 10:00 12/29/16 10:23 DC Diphenhydramine HCl (Benadryl) 25 mg PACU ORDER PRN IV PRURITUS 12/29/16 10:00 12/29/16 10:23 DC Naloxone HCl (Narcan) 0.1 mg Q2M PRN IV FOR RESP RATE 8 OR LESS 12/29/16 10:00 12/30/16 09:59 DC Ketorolac Tromethamine (Toradol) 30 mg Q6H PRN IV PAIN 12/29/16 10:00 12/30/16 09:59 DC 12/30/16 07:55 Hydromorphone HCl (Dilaudid) 1 mg Q3H PRN IV BREAKTHROUGH PAIN 12/29/16 10:00 12/30/16 09:59 DC Hydromorphone HCl (Dilaudid) 0.2 mg Q3H PRN IV PAIN LEVEL 1-5 12/29/16 10:00 12/30/16 09:59 DC Hydromorphone HCl (Dilaudid) 0.4 mg Q3H PRN IV PAIN LEVEL 6-10 12/29/16 10:00 12/30/16 09:59 DC Diphenhydramine HCl 25 mg 25 mg Q6H PRN IV ITCHING 12/29/16 10:00 12/30/16 09:59 DC Lactated Ringer's (Lr) 1,000 ml @ 125 mls/hr Q8H IV 12/29/16 10:10 12/30/16 19:30 Acetaminophen/ Hydrocodone Bitart ([place] (5/325)) 1 tab Q4H PRN PO PAIN LEVEL 4-6 12/29/16 10:30 Acetaminophen/ Hydrocodone Bitart ([place] (5/325)) 2 tab Q4H PRN PO PAIN LEVEL 7-10 12/29/16 10:30 Ibuprofen (Motrin) 800 mg Q8 PO 12/29/16 14:00 12/31/16 06:16 Simethicone (Mylicon) 160 mg Q8H PRN PO DISTENSION/GAS/BLOATING 12/29/16 10:30 12/30/16 15:42 Senna/Docusate Sodium (Senokot-S) 1 tab BID PO 12/29/16 21:00 12/31/16 09:39 Lanolin (Pfg-E-Teiwct) 1 applic BEDSIDE MEDICATION PRN TOP BEDSIDE FOR GLENDY TO NIPPLES 12/29/16 10:30 Diphtheria/ Tetanus/Acell Pertussis 0.5 ml 0.5 ml ONCE ONCE IM* 01/01/17 09:00 01/01/17 09:01 Oxytocin/Lactated Ringer's 500 ml @ 0 mls/hr ONCE PRN IV For Hemorrhage Management 12/29/16 10:30 Methylergonovine Maleate (Methergine) 0.2 mg ONCE PRN IM VAGINAL BLEEDING 12/29/16 10:30 Carboprost Tromethamine (Hemabate) 250 mcg ONCE PRN IM VAGINAL BLEEDING 12/29/16 10:30 Misoprostol 1000 mcg 1,000 mcg ONCE PRN IN VAGINAL BLEEDING 12/29/16 10:30 Lactated Ringer's 500 ml @ 500 mls/hr Q1H ONCE IV 12/30/16 16:00 12/30/16 16:59 DC Lactated Ringer's 500 ml @ 500 mls/hr Q1H ONCE IV 12/30/16 19:30 12/30/16 20:29 DC Cefazolin Sodium/ Dextrose 50 ml @ 100 mls/hr Q8 IVPB 12/30/16 22:00 12/31/16 14:29 12/31/16 06:16 Sodium Chloride 1,000 ml @ 1,000 mls/hr Q1H ONCE IV 12/31/16 00:30 12/31/16 01:29 DC 12/31/16 01:22 Ceftriaxone Sodium (Rocephin) 50 ml @ 100 mls/hr Q24H IVPB 12/31/16 01:30 12/31/16 01:30 DC Ciprofloxacin 250 mg 250 mg BID@06,18 PO 12/31/16 05:00 12/31/16 04:45 Sodium Chloride (NS) 100 ml @ ud STK-MED ONCE .ROUTE 12/31/16 04:10 12/31/16 04:11 DC 12/31/16 04:10 Iohexol (Omnipaque 300mg/ ml) 150 ml STK-MED ONCE .ROUTE 12/31/16 04:10 12/31/16 04:11 DC 12/31/16 04:10 Doing Well Afebrile Ambulatory Chest Clear Breasts are soft , Nipples are intact Abdomen is soft Fundus is firm Moderate amount of lochia Incision is clean ,No evidence of infection No calf tenderness No ankle edema New born is doing well, Breast feeding LEONARD JONES MD Dec 31, 2016 11:55
[2016-12-31 17:00] VITALS: BP 119/70; PULSE 100; RESP 18
[2016-12-31] MEDS: NEOMYC/POLYMYX/BACIT 0.9 GM OINT TOP SCH ×2 (17:57→21:18)
--- NOTE | 2016-12-31 18:50 | CONS ---
Date/Time of Note Date/Time of Note DATE: 12/31/16 TIME: 18:46 Assessment/Plan Assessment/Plan Chief Complaint/Hosp Course 26 yo female s/p c section wiht tachycardia - DDx for tachycardia includes inflammation from recent surgery, stress of being away from her baby, anemia likely contributing somewhat - She is in sinus rhythm and the rhythm itself is benign - I don't see any obvious underlying pathologic cause requiring further workup or managment and quite reassuring that her CT-A was negative for PE - She can be discharged from the cardiac perspective - Would assess for iron deficiency and treat if needed Problems: Consultation Date/Type/Reason Admit Date/Time Dec 29, 2016 at 07:36 Initial Consult Date 12/30/16 Type of Consultation: Medicine Reason for Consultation Tachycardia 24 HR Interval Summary Free Text/Dictation Patient underwent CT-A, negative for PE When seen today, she was crying. She is quite sad to be stuck in the hospital when her baby who has gastroschisis is hospitalized at [facility]. Aside from her obvious emotional symptoms, she has no physical complaints. She denies any pain, SOB or any localizing sypmtoms at all. Constitutional: No chills, No diaphoresis, No disoriented, No febrile, No improved, No no complaints, No other, No poor po, No requiring IVF, No requiring O2 Exam/Review of Systems Vital Signs Vitals Vital Signs Date Time Temp Pulse Resp B/P Pulse Ox O2 Delivery O2 Flow Rate FiO2 12/31/16 17:00 98.6 100 18 119/70 Room Air 12/30/16 19:45 98 Intake and Output 12/30/16 12/30/16 12/31/16 15:00 23:00 07:00 Intake Total 1000 ml 50 ml Output Total 500 ml 1000 ml Balance -500 ml 0 ml 50 ml Exam Constitutional: alert, oriented, well developed Results Result Diagram: 12/31/16 0959 12/29/16 0535 Results 24 hrs Laboratory Tests Test 12/30/16 20:59 12/30/16 22:45 12/31/16 09:59 12/31/16 10:00 White Blood Count 17.8 H 15.5 H Red Blood Count 3.32 L 3.13 L Hemoglobin 9.0 L 8.5 L Hematocrit 26.8 L 25.4 L Mean Corpuscular Volume 80.7 L 81.2 L Mean Corpuscular Hemoglobin 27.1 L 27.2 L Mean Corpuscular Hemoglobin Concent 33.6 33.5 Red Cell Distribution Width 14.3 14.4 Platelet Count 241 245 Mean Platelet Volume 9.6 10.2 Neutrophils % 77.6 H 69.9 Lymphocytes % 11.6 L 18.8 Monocytes % 8.6 6.9 Eosinophils % 0.3 1.7 Basophils % 0.2 0.3 Nucleated Red Blood Cells % 0.0 0.0 Neutrophils # (Manual) 13.8 H 10.8 H Lymphocytes # 2.1 2.9 Monocytes # 1.5 H 1.1 H Eosinophils # 0.1 0.3 Basophils # 0.0 0.1 Nucleated Red Blood Cells # 0.0 0.0 Urine Color YELLOW Urine Clarity CLEAR Urine pH 6.0 Urine Specific [place] 1.002 L Urine Ketones NEGATIVE Urine Nitrite NEGATIVE Urine Bilirubin NEGATIVE Urine Urobilinogen 1+ H Urine Leukocyte Esterase 1+ H Urine Microscopic RBC 8 H Urine Microscopic WBC 4 Urine Bacteria FEW A Urine Hemoglobin 3+ H Urine Glucose NEGATIVE Urine Total Protein 1+ H Thyroid Stimulating Hormone (TSH) 1.880 Medications Medications Current Medications Acetaminophen/ Hydrocodone Bitart ([place] (5/325)) 1 tab Q4H PRN PO PAIN LEVEL 4 -6; Start 12/29/16 at 10:30 Acetaminophen/ Hydrocodone Bitart ([place] (5/325)) 2 tab Q4H PRN PO PAIN LEVEL 7 -10; Start 12/29/16 at 10:30 Ibuprofen (Motrin) 800 mg Q8 PO Last administered on 12/31/16 13:13; Admin Dose 800 MG; Start 12/29/16 at 14:00 Simethicone (Mylicon) 160 mg Q8H PRN PO DISTENSION/GAS/BLOATING Last administered on 12/30/16 15:42; Admin Dose 160 MG; Start 12/29/16 at 10:30 Senna/Docusate Sodium (Senokot-S) 1 tab BID PO Last administered on 12/31/16 09 :39; Admin Dose 1 TAB; Start 12/29/16 at 21:00 Diphtheria/ Tetanus/Acell Pertussis 0.5 ml 0.5 ml ONCE ONCE IM* ; Start 01/01/17 at 09:00; Stop 01/01/17 at 09:01 Oxytocin/Lactated Ringer's 500 ml @ 0 mls/hr ONCE PRN IV For Hemorrhage Management; Start 12/29/16 at 10:30 Methylergonovine Maleate (Methergine) 0.2 mg ONCE PRN IM VAGINAL BLEEDING; Start 12/29/16 at 10:30 Carboprost Tromethamine (Hemabate) 250 mcg ONCE PRN IM VAGINAL BLEEDING; Start 12/29/16 at 10:30 Misoprostol (Cytotec) 1,000 mcg ONCE PRN [place] VAGINAL BLEEDING; Start 12/29/16 at 10:30 Ciprofloxacin (Cipro) 250 mg BID@06,18 PO Last administered on 12/31/16 17:55; Admin Dose 250 MG; Start 12/31/16 at 05:00 Neomycin/ Polymyxin/ Bacitracin (Neosporin (Ud Pkt)) 1 applic BID TOP Last administered on 12/31/16 17:57; Admin Dose 1 APPLIC; Start 12/31/16 at 15:30 AUDREY REY MD Dec 31, 2016 18:50
[2016-12-31 21:00] VITALS: BP 121/75; PULSE 92; RESP 19
[2017-01-01 04:00] VITALS: BP 121/71; PULSE 71; RESP 17
[2017-01-01] MEDS: CIPROFLOXACIN 250 MG TAB PO SCH (05:30)
[2017-01-01] MEDS: IBUPROFEN 800 MG TAB PO SCH (05:30)
[2017-01-01 08:45] VITALS: BP 114/73; PULSE 85; RESP 18
[2017-01-01] MEDS: SENNA/DOCUSATE NA (8.6MG/50MG) TAB PO SCH (08:55)
[2017-01-01] MEDS ORDERED: DIPHTH/TET/ACEL PERTUSS (ADULT) 0.5 ML VIAL IM* ONE (09:00)
[2017-01-01] MEDS: NEOMYC/POLYMYX/BACIT 0.9 GM OINT TOP SCH (11:03)
--- NOTE | 2017-01-01 13:10 | QN ---
Documentation Comment POD# 3 i stable afebrile tolerates diet No Vb +BM +voids VS stable Gen NAD Abd soft NT NDIncision intacy Genitalia No blood at perinium ---->Discharge Homeif clear from medicine ---->ambulation ASAF BOWSER M.D. Jan 01, 2017 13:10
--- NOTE | 2017-01-01 13:12 | DS ---
Date/Time of Note Date/Time of Note DATE: 01/01/17 TIME: 13:11 Discharge Summary Admission/Discharge Info Admit Date/Time Dec 29, 2016 at 07:36 Discharge Date/Time Discharge Diagnosis Patient Condition: Good Procedures c/section Hospital Course This is a 26-year-old female admitted to the unit floor for: #1 sinus tachycardia: Infection versus cardiopulmonary versus dehydration vs other etiology: Patient is status post postop day 1. At the current time will provide IV fluid resuscitation with normal saline 1 L bolus. CBC did show an elevated white blood cell count which could be reactive secondary to her state and , of not she does have a UTI as well. Patient is currently afebrile. Chest x-ray showed atelectasis and no other signs of any underlying respiratory infection. Continue Ancef antibiotics as per OB/ TOLL TEST WORKER. Will check a CTA of the chest to rule out PE. EKG: sinus tach at approx 118 bpm, no acute ST or T wave abnormalities noted. And monitor for fevers as well as any possible further development of any worsening infection. Consider echocardiogram/cardiology consult if this tachycardia persists and testing is unequivocal #2 status post : Is postop day 1 status post . Continue routine care per [employer] DRIVER. #3 UTI: cipro PO bid Thank you for this consultation we will continue to follow this patient with you. Home Meds Reported Medications Vits W-Ca,Fe,Fa(<1MG) () 1 Tab Tablet, 1 TAB PO DAILY 07/26/11 Primary Care Provider Care Physician No Primary ASAF BOWSER M.D. Jan 01, 2017 13:12
[2017-01-01 13:16] LABS: RUBELLA ANTIBODY - IGG <0.90 index
--- NOTE | 2017-01-01 14:56 | CONS ---
Date/Time of Note Date/Time of Note DATE: 01/01/17 TIME: 14:55 Assessment/Plan Assessment/Plan Chief Complaint/Hosp Course 26 yo female s/p c section with sinus tachycardia of unclear etiology, now resolved - DDx for tachycardia includes inflammation from recent surgery, stress of being away from her baby, anemia likely contributing somewhat - She is in sinus rhythm and the rhythm itself is benign - I don't see any obvious underlying pathologic cause requiring further workup or managment and quite reassuring that her CT-A was negative for PE - She can be discharged from the cardiac perspective - Would assess for iron deficiency and treat if needed Problems: Consultation Date/Type/Reason Admit Date/Time Dec 29, 2016 at 07:36 Initial Consult Date 12/30/16 Type of Consultation: Medicine 24 HR Interval Summary Free Text/Dictation Patient feeling well, anxious to be discharged to see her baby No chest symptoms Tachycardia resolved Exam/Review of Systems Vital Signs Vitals Vital Signs Date Time Temp Pulse Resp B/P Pulse Ox O2 Delivery O2 Flow Rate FiO2 01/01/17 08:45 98.5 85 18 114/73 Room Air 12/30/16 19:45 98 Exam Constitutional: alert, oriented, well developed Psych: nl mood/affect, no complaints Head: atraumatic, normocephalic Eyes: EOMI, PERRL, nl conjunctiva, nl lids, nl sclera ENMT: nl external ears & nose, nl lips & teeth, nl nasal mucosa & septum Neck: non-tender, supple Respiratory: clear to auscultation, normal air movement Cardiovascular: nl pulses, regular rate and rhythm Gastrointestinal: nl liver, spleen, non-tender, soft Musculoskeletal: nl extremities to inspection, nl gait and stance Extremities: normal pulses Neurological: DOPEMAN II-XII intact, nl mental status, nl speech, nl strength Skin: nl turgor, No rash or lesions Lymph: nl lymph nodes Results Result Diagram: 12/31/16 0959 12/29/16 0535 Medications Medications Current Medications Acetaminophen/ Hydrocodone Bitart ([place] (5/325)) 1 tab Q4H PRN PO PAIN LEVEL 4 -6; Start 12/29/16 at 10:30 Acetaminophen/ Hydrocodone Bitart ([place] (5/325)) 2 tab Q4H PRN PO PAIN LEVEL 7 -10; Start 12/29/16 at 10:30 Ibuprofen (Motrin) 800 mg Q8 PO Last administered on 01/01/17 05:30; Admin Dose 800 MG; Start 12/29/16 at 14:00 Simethicone (Mylicon) 160 mg Q8H PRN PO DISTENSION/GAS/BLOATING Last administered on 01/01/17 04:50; Admin Dose 160 MG; Start 12/29/16 at 10:30 Senna/Docusate Sodium 1 tab 1 tab BID PO Last administered on 01/01/17 08:55; Admin Dose 1 TAB; Start 12/29/16 at 21:00 Oxytocin/Lactated Ringer's 500 ml @ 0 mls/hr ONCE PRN IV For Hemorrhage Management; Start 12/29/16 at 10:30 Methylergonovine Maleate (Methergine) 0.2 mg ONCE PRN IM VAGINAL BLEEDING; Start 12/29/16 at 10:30 Carboprost Tromethamine (Hemabate) 250 mcg ONCE PRN IM VAGINAL BLEEDING; Start 12/29/16 at 10:30 Misoprostol (Cytotec) 1,000 mcg ONCE PRN [place] VAGINAL BLEEDING; Start 12/29/16 at 10:30 Ciprofloxacin (Cipro) 250 mg BID@06,18 PO Last administered on 01/01/17 05:30; Admin Dose 250 MG; Start 12/31/16 at 05:00 Neomycin/ Polymyxin/ Bacitracin (Neosporin (Ud Pkt)) 1 applic BID TOP Last administered on 01/01/17 11:03; Admin Dose 1 APPLIC; Start 12/31/16 at 15:30 AUDREY REY MD Jan 01, 2017 14:56
--- NOTE | 2017-01-01 19:15 | RADRPT ---
Vent Rate: 118 bpm RR Interval: 0 msec OK Interval: 142 msec QRS Duration: 80 msec QT Interval: 326 msec QTC Interval: 456 msec P-R-T [place]: 42 - 34 - -5 degrees Sinus tachycardia Nonspecific ST and T wave abnormality Abnormal ECG Electronically Signed By: Gerardo Amaral [id number]
== END 2017-01-01 16:31 | disposition home or self-care (01) | DRG 765 ==
LOC: OBT 04:53 → L-D 04:54 → OBT 07:36 → L-D 08:21 → PP1 12:34
PROVIDERS: ADMIT Obstetrics & Gynecology; ATTEND Obstetrics & Gynecology
PROC: 10D00Z1 Extraction of Products of Conception, Low, Open Approach (ICD-10-PCS; principal; 2016-12-29 08:45)
DX: O34.211 Maternal care for low transverse scar from previous cesarean delivery (principal); O60.14X0 Preterm labor third trimester with preterm delivery third trimester, not applicable or unspecified; O75.3 Other infection during labor; O90.89 Other complications of the puerperium, not elsewhere classified; R00.0 Tachycardia, unspecified; O76 Abnormality in fetal heart rate and rhythm complicating labor and delivery; Z37.0 Single live birth; Z3A.35 35 weeks gestation of pregnancy
CPT/HCPCS: 36415; 71020; 71250; 71275; 76815; 76818; 80053; 80307; 81001; 82803; 84443; 85025; 85610; 85730; 86592; 86703; 86762; 86850; 86885; 86900; 86901; 87086; 87340; 88307; 90715; 93005; 96360; G0463; J0690; J0696; J1885; J2274; J2370; J2590; J2765; J2790; J3010; J7030; J7120; Q9967